=== PATIENT | male | born 1990 | race Caucasian/White ===

== ENCOUNTER 2016-10-17 20:34 | Emergency (ER) | payer SELFPAY | END 2016-10-17 20:43 | disposition disaster alternative care site (69) | LOC: GMED 20:34 | DX: Z53.21 Procedure and treatment not carried out due to patient leaving prior to being seen by health care provider (principal) ==

== ENCOUNTER 2016-11-11 22:21 | Emergency (ER) | payer SELFPAY ==
--- NOTE | ~2016-11-11 | ER ---
PATIENT'S NAME: JULIETA CHRISTINA [facility] AGE: 25 Y [address] ROOM: [place] [id number] LOCATION: ED ADMIT DATE: 11/11/2016 ER/Outpatient Report DISCHARGE DATE: 11/11/2016 FAMILY PHYSICIAN: PHYSICIAN, NO ATTENDING PHYSICIAN: Amber Chavez Time of Arrival: 2221 hours. Time of Evaluation: 2230 hours. CHIEF COMPLAINT: Right ear pain with some dental pain on that side x1 week. HISTORY OF PRESENT ILLNESS: This is a 25-year-old male, who presents to the ER. He states he has been having some right ear discomfort and has not been able to hear out of it for a couple of weeks. The patient states that he has tried to use some hydrogen peroxide in his ear without relief. The patient also states he has been having some right-sided dental pain as well. He states it does not hurt when he chews. He has not been running any fevers or chills. He has had no nasal discomfort or sore throat. ALLERGIES: PLEASE SEE MEDICATION LIST IN NURSE'S NOTES. MEDICATIONS: Please see medication list in nurse's notes. PAST MEDICAL HISTORY: Tonsil and adenoids. He had had tubes in his ears. SOCIAL HISTORY: He smokes 1 pack a day for the last 6 years. Drinks alcohol weekly. REVIEW OF SYSTEMS: All review of systems were completed and were negative with the exception of those discussed in the HPI. PHYSICAL EXAMINATION: VITAL SIGNS: Weight 125.7 kg taken, blood pressure is 167/98, pulse 110, respirations 18, temperature 98.3 degrees tympanically, saturations 98% on room air. Derrick Coma Score is 15. GENERAL: Alert, calm, well-developed, 25-year-old, in no acute distress. HEENT: Head: Normocephalic. Eyes: Pupils are equal and reactive to light. Ears: On the right, the auditory canal is clear. He has a good TM on the left. The right TM is not visualized due to cerumen impaction. Nose: PATIENT'S NAME: JULIETA CHRISTINA [facility] AGE: 25 Y [address] ROOM: [place], [place] [address] LOCATION: ED ADMIT DATE: 11/11/2016 ER/Outpatient Report DISCHARGE DATE: 11/11/2016 FAMILY PHYSICIAN: PHYSICIAN, NO ATTENDING PHYSICIAN: Amber Chavez Turbinates pink with no drainage. Throat: No exudates or erythema. He does display moist mucous membranes. He does have some dental decay noted throughout his mouth. No purulent drainage is seen from the gumline. LUNGS: Clear to auscultation. HEART: Regular rate and rhythm. EXTREMITIES: No clubbing, cyanosis, or edema. He has full range of motion of all limbs. LABORATORY DATA AND X-RAYS: None were done. IMPRESSION: 1. Right otitis media. 2. Right cerumen impaction. 3. Right-sided dental pain. ASSESSMENT AND PLAN: I did flush out the cerumen using warm water mixed with hydrogen peroxide and removed large amount of cerumen from the ear. The patient did tolerate this well. Once the cerumen was removed. The TM was erythematic, so I will be placing the patient on amoxicillin. He needs to take Tylenol or ibuprofen as needed for pain. Continue to monitor his symptoms. Follow up with his primary care physician if he does not improve. The patient should also follow up with his dentist as soon as possible. He understands and agrees with care. KENZIE VASQUEZ PA-C FOR MD ENEDELIA JOSHUA/eliz /[id number] d: t: 11/16/16 1029, OUTPATIENT REPORT
== END 2016-11-11 22:54 | disposition disaster alternative care site (69) ==
LOC: GMED 22:21
PROC: 3E1B78Z Irrigation of Ear using Irrigating Substance, Via Natural or Artificial Opening (ICD-10-PCS; principal; 2016-11-11)
DX: H61.21 Impacted cerumen, right ear (principal); H66.91 Otitis media, unspecified, right ear; K08.89 Other specified disorders of teeth and supporting structures; F17.210 Nicotine dependence, cigarettes, uncomplicated; Z88.2 Allergy status to sulfonamides; Z79.899 Other long term (current) drug therapy; Z98.890 Other specified postprocedural states

== ENCOUNTER 2017-01-24 21:56 | Emergency (ER) | payer SELFPAY ==
--- NOTE | ~2017-01-24 | ER ---
PATIENT'S NAME: JULIETA CHRISTINA [facility] AGE: 26 Y [address] ROOM: [place] [address] LOCATION: [facility] ADMIT DATE: 01/24/2017 ER/Outpatient Report DISCHARGE DATE: FAMILY PHYSICIAN: PHYSICIAN, NO ATTENDING PHYSICIAN: Jez Smith Admission date and time are documented in the medical record. I saw the patient at 2215 hours. CHIEF COMPLAINT: Left jaw swelling pain. HISTORY OF PRESENT ILLNESS: The patient is a 26-year-old male who has had a 4-day history of left jaw pain. Radiates into his left ear. Worse when he opens his mouth and chews. He had this pain for about 4 days. No fever, chills, or sweats. No recent coughs, colds, or flus. No fall or trauma. No lightheadedness, dizziness, syncope, or near syncope. No headache. No neck or spine pain. No chest pain or shortness of breath. No abdominal pain, nausea, vomiting, or diarrhea. No incontinence of stool or urine. No joint or muscle swelling, redness, or pain. No skin eruptions or rash. Does have a history of depression. No neuro changes or endocrine problems. HOME MEDICATIONS: See attached medication list. ALLERGIES: SULFA. SOCIAL HISTORY: The patient smokes a pack of cigarettes a day. Occasional intake of alcohol. SIGNIFICANT PAST MEDICAL HISTORY: Tobacco abuse, depression. OPERATIONS: Tonsillectomy, adenoidectomy, and tympanostomy tubes. REVIEW OF SYSTEMS: All systems reviewed by me are negative with the exception of those discussed in the history of present illness. PHYSICAL EXAMINATION: VITAL SIGNS: Temperature 97.7, orally, pulse 100, respirations 16, blood pressure 172/102, and O2 sat on room air is 98%. PATIENT'S NAME: JULIETA CHRISTINA [facility] AGE: 26 Y [address] ROOM: [place] [address] LOCATION: [facility] ADMIT DATE: 01/24/2017 ER/Outpatient Report DISCHARGE DATE: FAMILY PHYSICIAN: PHYSICIAN, NO ATTENDING PHYSICIAN: Jez Smith HEAD: Normocephalic. EYES: Clear. EARS: Clear TMs bilaterally. NOSE: Clear. THROAT: Clear. Mucous membranes moist. The patient has poor dentition and multiple cavities. He has swelling around the left lower molar. He has swelling of that area of the jaw externally as well as his left facial cheek. There is no cervical adenopathy or submandibular adenopathy or mass palpable. IMPRESSION: Left jaw pain, secondary to possible abscess, left posterior molar. PLAN: The patient is discharged home. Observation. Activity as tolerated. Warm hot packs to the left jaw intermittently as needed. Continue present home medications and care. Amoxicillin 500 mg 3 times a day for 10 days. [place] 5/325 one every 6 hours as needed for pain, #12. The patient was instructed to see a dentist for definitive treatment. Follow up with personal physician as needed. MD CHRISTIAN DURAN/yaquelinl /[id number] d: 01/24/17 2328 t: 01/25/17 0339, OUTPATIENT REPORT
== END 2017-01-24 22:31 | disposition disaster alternative care site (69) ==
LOC: GMED 21:56
DX: R68.84 Jaw pain (principal); F17.210 Nicotine dependence, cigarettes, uncomplicated; F32.9 Major depressive disorder, single episode, unspecified; Z90.89 Acquired absence of other organs; Z96.22 Myringotomy tube(s) status; Z88.2 Allergy status to sulfonamides; Z79.899 Other long term (current) drug therapy